=== PATIENT | male | born 1960 | race Caucasian/White ===

== ENCOUNTER → 2017-04-10 | Day surgery (SDC) | payer OTHER ==
[~2017-04-10] VITALS: Ht 175.3 cm; Wt 102.0 kg
[~2017-04-10] MED LIST: CHOL200047 PO; MULT-666 PO; Sodium Chloride LOK Flush 10 mL Syringe IV PRN; fentaNYL-PF 50 mCg/mL 2 mL Inj IVPUSH PRN
[2017-04-10 07:31] VITALS: BP 130/78; PULSE 64; RESP 16; O2SAT 98
[2017-04-10 13:17] VITALS: BP 118/70; PULSE 64; RESP 16; O2SAT 98
[2017-04-10] MEDS: 0.9% Sodium Chloride 1,000 ML IV SCH ×2 (14:36→14:49)
[2017-04-10 14:55] VITALS: BP 107/55; PULSE 66; RESP 16; O2SAT 98
[2017-04-10 15:05] VITALS: BP 96/66; PULSE 68; RESP 16; O2SAT 95
[2017-04-10 15:15] VITALS: BP 84/64; PULSE 67; RESP 16; O2SAT 96
--- NOTE | 2017-04-10 15:23 | ENDO ---
[address] [address] ENDOSCOPY PROCEDURE PATIENT: NORA SCHWARZ : 1960 MR#: [id number] ADMIT: 04/10/2017 JOB ID: [id number] DATE: 04/10/2017 PROCEDURE: Colonoscopy. INDICATIONS: Screening. Patient's ASA classification is II. Mallampati score is II. MEDICATIONS: Versed 3 mg, fentanyl 75 mcg. INSTRUMENT USED: [id number]-H180AL. PREPARATION QUALITY: Was fair. PROCEDURE DETAILS: After informed consent was obtained, the patient was brought into the GI suite, where he was placed on oxygen via nasal cannula and monitored with continuous pulse oximeter, telemetry, and blood pressure monitoring. A time-out was performed. Then, he was placed in a left lateral decubitus position and medications were administered for sedation. Digital rectal exam was performed, which was unremarkable. The colonoscope was then inserted into the rectum and advanced under direct visualization to the cecum, which was identified by the presence of the ileocecal valve and appendiceal orifice. Once the cecum was reached, the colonoscope was withdrawn back into the rectum as the mucosa and lumen were examined. In the rectum, retroflexion was performed. Following retroflexion, remaining air in the rectum was suctioned, and procedure was completed. FINDINGS: Retroflexed views in the rectum revealed internal hemorrhoids. Otherwise normal exam from rectum to cecum. IMPRESSION: Internal hemorrhoids. RECOMMENDATIONS: Repeat colonoscopy in 10 years, sooner if symptoms should dictate. COMPLICATIONS: None. ESTIMATED BLOOD LOSS: Zero.
[2017-04-10 15:25] VITALS: BP 114/73; PULSE 78; RESP 16; O2SAT 98
== END | disposition home or self-care (01) ==
LOC: END 00:27
PROVIDERS: ATTEND Internal Medicine Gastroenterology
DX: Z12.11 Encounter for screening for malignant neoplasm of colon (principal); K64.8 Other hemorrhoids
CPT/HCPCS: G0121; G0500; J2250; J3010; J7030